=== PATIENT | male | born 1965 | race Caucasian/White ===

== ENCOUNTER 2020-10-15 12:34 | Emergency (ER) | payer BC, OTHER ==
[2020-10-15] MEDS ORDERED: ACETAMINOPHEN-CODEINE 300/30MG TAB ONE (14:02)
[2020-10-15] MEDS ORDERED: ONDANSETRON HCL 4 MG/2 ML VIAL ONE (14:03)
[2020-10-15] MEDS ORDERED: MORPHINE SULFATE 4 MG/1ML SYG ONE (14:03)
== END 2020-10-15 14:43 | disposition home or self-care (01) ==
LOC: EDH 12:34
DX: S52.552A Other extraarticular fracture of lower end of left radius, initial encounter for closed fracture (principal); S62.355A Nondisplaced fracture of shaft of fourth metacarpal bone, left hand, initial encounter for closed fracture; S39.012A Strain of muscle, fascia and tendon of lower back, initial encounter; W14.XXXA Fall from tree, initial encounter; Y93.89 Activity, other specified; Y92.89 Other specified places as the place of occurrence of the external cause; Y99.8 Other external cause status
CPT/HCPCS: 71046; 72100; 73110; 93005; 96374; 96375; 99285; J2270; J2405

== ENCOUNTER → 2023-07-11 | Outpatient (CLI) | payer OTHER | END | disposition home or self-care (01) | LOC: OIH 07-05 08:17 | PROVIDERS: ATTEND Nurse Practitioner Family | DX: Z13.6 Encounter for screening for cardiovascular disorders (principal) | CPT/HCPCS: 75571 ==